=== PATIENT | female | born 1985 | race Caucasian/White ===

== ENCOUNTER 2022-06-09 07:56 | Outpatient (CLI) | payer OTHER | END 2022-06-09 07:57 | disposition home or self-care (01) | LOC: CSHLAB 07:56 | PROVIDERS: ATTEND Advanced Practice Midwife | DX: Z20.822 Contact with and (suspected) exposure to COVID-19 (principal) | CPT/HCPCS: 87811 ==

== ENCOUNTER 2022-06-12 05:30 | Inpatient (IN) | payer OTHER ==
[~2022-06-12 05:30] MED LIST: Butorphanol Tartrate 1 MG/ML VIAL SLOW IVP PRN; Carboprost 250 MCG/ML AMP IM PRN; Diphenoxylate HCl/Atropine Tablet PO PRN; HYDROcodone/Acetaminophen 5/325 mg Tablet PO PRN; Ibuprofen 800 MG TAB PO PRN; Lidocaine 1% (PF) 30 ML VIAL SC PRN; Methylergonovine 0.2 MG/ML VIAL IM PRN; Misoprostol 200 MCG TAB PR PRN; NS w/ Oxytocin 30 units 500 ML IV SCH; Ondansetron PF 4 MG/2 ML Vial IVP PRN; Promethazine HCl 25 MG/ML VIAL IM PRN; hydrALAZINE 20 MG/ML VIAL SLOW IVP PRN
[2022-06-12] MEDS ORDERED: Bupivacaine/Epinephrine 0.25% 30 ML VIAL ONE (08:00)
[2022-06-12 08:17] VITALS: BMI 29.0
[2022-06-12] MEDS: Lactated Ringer's 1,000 ML IV SCH ×3 (08:20→17:58)
[2022-06-12 08:21] LABS: Hemoglobin 10.8 g/dL (12.0-15.5); Mean Corpuscular HGB CONC 33.1 g/dL (32.0-36.0); Mean Corpuscular Hemoglobin 28.3 pg (27.0-33.0); Mean Corpuscular Volume 85.3 fl (81.6-98.3); Platelet Count 263 10x3/uL (150-450); RBC Distribution Width 14.8 % (11.5-14.5); Red Blood Cell (RBC) Count 3.82 10x6/uL (3.90-5.03); White Blood Cell (WBC) Count 14.7 10x3/uL (3.5-10.5)
[2022-06-12] MEDS ORDERED: Fentanyl 2 mcg/Bup 0.1% Cadd 100 ML ONE (08:26)
[2022-06-12 08:56] LABS: Hep B Surf Ag Non-Reactive S/CO (NonReactive); Syphilis Antibody Nonreactive (Nonreactive); Syphilis Antibody Index 0.03 S/CO (<1.00 Non-Reactive)
[2022-06-12 09:19] LABS: HBSAg Index 0.19 S/CO (0-0.99)
[2022-06-12] MEDS ORDERED: Naloxone HCl 0.4 mg/ml Vial IVP PRN ×2 (10:45)
[2022-06-12] MEDS ORDERED: ePHEDrine Sulfate 50 MG/10 ML VIAL SLOW IVP PRN (10:45)
[2022-06-12] MEDS ORDERED: Communication Order-Pharmacy FS SCH (10:45)
[2022-06-12] MEDS ORDERED: Moisturizing Cream (Eucerin) 113 GM JAR TOP PRN (10:45)
[2022-06-12] MEDS ORDERED: diphenhydrAMINE 50 MG/ML VIAL IVP PRN (10:45)
[2022-06-12] MEDS ORDERED: Promethazine HCl 25 MG/ML VIAL IM PRN (10:45)
[2022-06-12] MEDS ORDERED: Lactated Ringer's 500 ML IV PRN (10:45)
[2022-06-12] MEDS ORDERED: Ondansetron PF 4 MG/2 ML Vial IVP PRN (10:45)
[2022-06-12] MEDS ORDERED: Acetaminophen 325 MG TAB PO PRN (10:45)
[2022-06-12] MEDS: Fentanyl 2 mcg/Bupivacaine 0.1% Cassette 100 ML EPIDURAL SCH ×2 (15:55→21:10)
[2022-06-12] MEDS ORDERED: Mineral Oil ENEMA ONE (18:30)
[2022-06-12] MEDS ORDERED: Mineral Oil ENEMA FS SCH (20:45)
[2022-06-12] MEDS ORDERED: Azithromycin 500 MG VIAL ONE (21:44)
[2022-06-12] MEDS ORDERED: Sodium Chloride 0.9% 100 ML ONE ×2 (21:45→22:44)
[2022-06-12] MEDS ORDERED: Famotidine/PF 20 mg/2ml Vial ONE (21:45)
[2022-06-12] MEDS ORDERED: CEFAZOLIN 2 GM VIAL ONE (21:45)
[2022-06-12] MEDS ORDERED: Ampicillin 2 GM VIAL ONE (22:44)
[2022-06-12] MEDS ORDERED: Ampicillin 2 GM in Sodium Chloride 0.9% 100 ML IVPB SCH (23:15)
[2022-06-12] MEDS ORDERED: Misoprostol 200 MCG TAB PR SCH (23:15)
[2022-06-12] MEDS: GENTAMICIN IVPB SCH (23:46)
[2022-06-12] MEDS: SODIUM CHLORIDE IVPB SCH (23:46)
[2022-06-12] MEDS: ADMIXTURE FEE IVPB SCH (23:46)
[2022-06-13] MEDS ORDERED: Methylergonovine 0.2 MG/ML VIAL IM PRN (01:38)
[2022-06-13] MEDS ORDERED: Misoprostol 200 MCG TAB VAG PRN (01:38)
[2022-06-13] MEDS ORDERED: hydrALAZINE 20 MG/ML VIAL SLOW IVP PRN (01:38)
[2022-06-13] MEDS ORDERED: NS w/ Oxytocin 30 units 500 ML IV SCH (01:38)
[2022-06-13] MEDS ORDERED: HYDROcodone/Acetaminophen 5/325 mg Tablet PO PRN ×2 (01:38)
[2022-06-13] MEDS ORDERED: Benzocaine-Menthol 82.5 ML CAN TOP PRN (01:38)
[2022-06-13] MEDS ORDERED: Milk Of Magnesia 30 ML UDCUP PO PRN (01:38)
[2022-06-13] MEDS ORDERED: Boostrix 0.5 ML (Tdap) VIAL IM ONE (01:38)
[2022-06-13] MEDS ORDERED: Bisacodyl 10 MG SUPP PR PRN (01:38)
[2022-06-13] MEDS ORDERED: Docusate 100 MG CAP PO SCH (02:00)
[2022-06-13] MEDS ORDERED: Ferrous Sulfate 325 MG TAB PO SCH (02:00)
[2022-06-13] MEDS: Ibuprofen 800 MG TAB PO SCH ×3 (02:16→17:35)
[2022-06-13] MEDS: Ampicillin 2 GM in Sodium Chloride 0.9% 100 ML IVPB SCH ×4 (05:33→23:18)
[2022-06-13] MEDS: Ferrous Sulfate 325 MG TAB PO SCH ×2 (07:56→15:49)
[2022-06-13] MEDS: Lactated Ringer's 1,000 ML IV SCH (07:57)
[2022-06-13] MEDS: Docusate 100 MG CAP PO SCH ×2 (09:12→20:33)
[2022-06-13] MEDS ORDERED: Acetaminophen 500 MG TAB PO PRN (10:10)
[2022-06-14] MEDS: GENTAMICIN IVPB SCH (00:12)
[2022-06-14] MEDS: ADMIXTURE FEE IVPB SCH (00:12)
[2022-06-14] MEDS: SODIUM CHLORIDE IVPB SCH (00:12)
[2022-06-14] MEDS: Ibuprofen 800 MG TAB PO SCH ×2 (00:19→08:50)
[2022-06-14 08:13] VITALS: BP 129/61; TEMP 98
[2022-06-14] MEDS: Ferrous Sulfate 325 MG TAB PO SCH (08:49)
[2022-06-14] MEDS: Docusate 100 MG CAP PO SCH (08:50)
== END 2022-06-14 11:20 | disposition home or self-care (01) | DRG 806 ==
LOC: CSHLD 05:43 → CSHPP 06-13 01:15
PROVIDERS: ADMIT Obstetrics & Gynecology; ATTEND Obstetrics & Gynecology
PROC: 10D07Z6 Extraction of Products of Conception, Vacuum, Via Natural or Artificial Opening (ICD-10-PCS; principal; 2022-06-12)
DX: O69.81X0 Labor and delivery complicated by cord around neck, without compression, not applicable or unspecified (principal); O86.4 Pyrexia of unknown origin following delivery; Z37.0 Single live birth; O76 Abnormality in fetal heart rate and rhythm complicating labor and delivery; Z3A.39 39 weeks gestation of pregnancy; O75.81 Maternal exhaustion complicating labor and delivery
CPT/HCPCS: 36415; 51701; 51702; 85027; 86780; 86850; 86900; 86901; 87340; J0290; J1580; J2405; J2590; J3490; J7120